=== PATIENT | female | born 1975 | race Two or more races ===

== ENCOUNTER 2024-07-13 22:50 | Emergency (ER) | payer OTHER ==
[~2024-07-13] VITALS: Ht 160 cm; Wt 67.1 kg
[2024-07-13] MEDS ORDERED: COZAAR100 MG PO (22:54)
[2024-07-13] MEDS ORDERED: 0.9 % SODIUM CHLORIDE 1,000 ML IV STA (23:00)
[2024-07-13] MEDS ORDERED: MORPHINE SULFATE 4 MG/ML VIAL IV STA (23:07)
[2024-07-13] MEDS ORDERED: FAMOTIDINE/PF 20 MG/2 ML VIAL IV PUSH STA (23:08)
[2024-07-13] MEDS ORDERED: FAMOTIDINE/PF 20 MG/2 ML VIAL ONE (23:19)
[2024-07-13 23:25] LABS: HEMOGLOBIN 13.2 g/dL (12.0-15.00); MEAN CELL VOLUME 88.5 fL (80.00-100.00); MEAN CORPUSCULAR HGB CONC 33.9 g/dl (32.0-36.0); PLATELET COUNT 199 K/uL (150-450); RED CELL DISTRIBUTION WIDTH 13.9 % (11.5-14.5)
[2024-07-13 23:48] LABS: ALBUMIN 3.9 gm/dL (3.4-5.0); BILIRUBIN TOTAL 0.47 mg/dL (0.3-1.2); BILIRUBIN,CONJUGATED 0.11 mg/dL (0.0-0.2); BILIRUBIN,UNCONJUGATED 0.36 mg/dL (0.0-0.6); CALCIUM 9.5 mg/dL (8.5-10.1); CREATININE SERUM 0.65 mg/dL (0.55-1.02); GFR 97.7; POTASSIUM 3.52 mEq/L (3.5-5.1); TOTAL PROTEIN 6.9 gm/dL (6.4-8.2)
[2024-07-14] MEDS ORDERED: HYOSCYAMINE SULFATE 0.125 MG TAB.SUBL ONE (01:30)
[2024-07-14] MEDS ORDERED: HYOSCYAMINE SULFATE 0.125 MG TAB.SUBL SL ONE (01:30)
[2024-07-14] MEDS ORDERED: LACTULOSE 10 G/15 ML ML PO STA (02:15)
[2024-07-14] MEDS ORDERED: MAGNESIUM HYDROXIDE 400 MG/5 ML ML PO STA (02:16)
[2024-07-14] MEDS ORDERED: MINERAL OIL 30 ML BLIST.PACK PO STA (02:16)
[2024-07-14] MEDS ORDERED: LACTULOSE 20 G/30 ML BLIST.PACK ONE (02:20)
[2024-07-14] MEDS ORDERED: MAGNESIUM HYDROXIDE 30 ML BLIST.PACK PO ONE (02:20)
[2024-07-14] MEDS ORDERED: MINERAL OIL 30 ML BLIST.PACK ONE (02:20)
[2024-07-14 02:58] LABS: URINE APPEARANCE Clear; URINE BILIRRUBIN Negative (NEGATIVE); URINE BLOOD Negative; URINE COLOR Yellow; URINE GLUCOSE Negative (NEGATIVE); URINE LEUKOCYTE Negative; URINE NITRATE Negative; URINE PROTEIN Negative (NEGATIVE)
[2024-07-14 03:05] LABS: URINE BACTERIA 150.5 uL (0.0-1933); URINE EPITHELIAL CELLS 6.4 uL (0.0-38.8); URINE RBC 4.8 uL (0.0-20.8); URINE WBC 7.4 uL (0.0-23.2)
[2024-07-14 03:53] LABS: URINE KETONE 80 (NEGATIVE)
== END 2024-07-14 03:44 | disposition home or self-care (01) ==
LOC: ER 22:50
PROVIDERS: General Practice
DX: R10.9 Unspecified abdominal pain (principal); Z98.84 Bariatric surgery status; K59.01 Slow transit constipation